=== PATIENT | male | born 1995 | race Caucasian/White ===

== ENCOUNTER 2016-12-28 21:14 | Emergency (ER) | payer BC, OTHER ==
[~2016-12-28] VITALS: Ht 177.8 cm; Wt 86.6 kg
[~2016-12-28 21:14] MED LIST: IBUP600T44 PO
[2016-12-28 21:20] VITALS: TEMP 36.5; Ht 177.8 cm; Wt 86.6 kg
[2016-12-28 22:04] LABS: BUN/CREATININE RATIO 11.9 (10-20); CREATININE 1.2 mg/dl (0.60-1.40)
[2016-12-28 22:14] LABS: CALCIUM 9.3 mg/dl (8.5-10.1)
--- NOTE | 2016-12-29 05:10 | EMERGENCY ROOM VISIT NOTE ---
History First contact with patient: 21:21 Chief Complaint: ALCOHOL OVERDOSE Stated Complaint: ETOH Nursing Triage Summary: pt brought to main ED by S services. pt found by police walking down [address], pt thought he was on [facility] [facility]. PBT 0.210. noted to have dirt and vomit on jeans, states "it's not vomit, i was playing football." pt ambulatory with steady gait. pt alert, breathing regularly and independently. pt admits to drinking beer, states "I'm 21, yeah I had alcohol." pt repeats multiple times "that's not accurate." History of Present Illness The patient is a 21 year old male who presents to the Emergency Room via BLS for evaluation of alcohol overdose. The patient was found walking down [facility], but thought he was on [facility]. The patient was noted to have Dr. on his jeans and reported that he had been playing football earlier. The patient admits to drinking multiple beers throughout the day. The patient repeats "That's not accurate" throughout the history of present illness. He denies any drug use. He denies any trauma. Review of Systems A complete 10-point Review of Systems was discussed with the patient, with pertinent positives and negatives listed in the History of Present Illness. All remaining Review of Systems questions can be considered negative unless otherwise specified. Past Medical/Surgical History Medical Problems: (1) Abrasion of hand, right, infected Family History No pertinent family history Social History Smoking Status: Never Smoker Alcohol Use: occasionally Marital Status: single Housing Status: lives with roommate Occupation Status: [employer] student Current/Historical Medications No Active Prescriptions or Reported Meds Allergies Coded Allergies: No Known Allergies (Unverified , 12/28/16) Physical Exam Vital Signs Date Time Temp Pulse Resp B/P Pulse Ox O2 Delivery O2 Flow Rate FiO2 12/29/16 06:10 73 16 110/67 97 Room Air 12/29/16 04:12 73 16 108/73 94 Room Air 12/29/16 02:09 75 16 97/40 95 Room Air 12/29/16 01:08 77 12/28/16 21:25 71 12/28/16 21:20 36.5 78 18 134/76 97 Room Air Physical Exam VITALS: Vitals are noted on the nurse's note and reviewed by myself. Vital signs stable. GENERAL: This is a 21-year-old male, sitting up in bed, appears to be visibly intoxicated, smells of ETOH. SKIN: The skin was without erythema, edema, or bruising. HEAD: Normocephalic atraumatic. EARS: External auditory canals clear. No hemotympanum. EYES: Pupils equal round and reactive to light and accommodation. NOSE: No deformities noted. MOUTH: No loose or chipped teeth. NECK: No cervicle spine tenderness. HEART: Regular rate and rhythm without murmurs gallops or rubs. LUNGS: Clear to auscultation bilaterally without wheezes, rales or rhonchi. ABDOMEN: Soft, nontender. MUSCULOSKELETAL: Full range of motion throughout. Strength intact throughout. NEURO: Patient was alert and oriented to person place and time. Speech slurred. Gross sensation intact. Patient cooperative with examiner. Medical Decision & Procedures Laboratory Results 12/28/16 21:40 Test 12/28/16 21:40 Anion Gap 8.0 mmol/L (3-11) Est Creatinine Clear Calc Drug Dose 98.9 ml/min Estimated GFR () 98.2 Estimated GFR (Non- 84.7 BUN/Creatinine Ratio 11.9 (10-20) Calcium Level 9.3 mg/dl (8.5-10.1) Ethyl Alcohol mg/dL 237.0 mg/dl (0-3) Medical Decision Differential diagnosis includes alcohol intoxication, drug intoxication, head trauma, among others. The patient is a 21-year-old male who presents today for evaluation of alcohol intoxication. Labs revealed a alcohol level of 237. Glucose is mildly elevated at 121. The patient was placed on the atomic spectroscopist and placed in the prone position. He was monitored throughout his stay. When he had sobered up, he was able to find a sober ride to take him home. He was reevaluated and no further trauma noted. The patient had no complaints. He was discharged home in good condition. Impression Primary Impression: Alcohol use with intoxication Departure Information Dispostion Home / Self-Care Condition GOOD Prescriptions No Active Prescriptions or Reported Meds Referrals No Doctor, Assigned (PCP) Patient Instructions [facility] Additional Instructions Do not drink anymore alcohol today. For pain control, you can use the following [id number] medicines (if >12 yo): - Regular strength (325mg/tab) Tylenol (acetaminophen) 2 tabs every 4-6 hours as needed. Do not exceed 12 tablets in a 24 hour period. Avoid taking more than 4 grams (4000 mg) of Tylenol per day. This includes any other sources of acetaminophen you may take on a regular basis. - Regular strength (200 mg/tab) Advil (ibuprofen) 1-2 tabs every 4-6 hours as needed. Do not exceed a dose of 3200 mg per day. Rest and drink plenty of fluids.
[2016-12-29 06:10] VITALS: BP 110/67; PULSE 73; O2SAT 97
== END 2016-12-29 06:28 | disposition home or self-care (01) ==
LOC: EDBD 21:14 → C.EDB 21:16
DX: F10.129 Alcohol abuse with intoxication, unspecified (principal)